=== PATIENT | male | born 1955 | race Caucasian/White ===

== ENCOUNTER 2016-12-10 10:11 | Inpatient (IN) | payer MEDICAID ==
[2016-12-10 10:36] LABS: % IMMATURE GRANULYOCYTES 0.4 % (0.0-1.1); ABSOLUTE IMMATURE GRANULOCYTES 0.03 10^3/uL (0.00-0.10); ADD DIFF? NO; ADD MORPH? NO; ADD SCAN? NO; ATYPICAL LYMPHOCYTE FLAG 20 (0-99); FRAGMENT RBC FLAG 0 (0-99); HEMOGLOBIN 15.6 g/dL (13.7-17.5); LEFT SHIFT FLG 0 (0-99); LIPEMIA HEMOLYSIS FLAG 90 (0-99); MEAN CELL HEMOGLOBIN 32.5 pg (27.9-34.1); MEAN CELL HEMOGLOBIN CONCENTR. 34.7 g/dL (32.4-36.7); MEAN CELL VOLUME 93.8 fL (81.5-99.8); MEAN PLATELET VOLUME 9.7 fL (8.7-11.7); PLATELET CLUMPS FLAG 0 (0-99); PLATELET COUNT 240 10^3/uL (150-400); RED CELL DISTRIBUTION WIDTH 11.8 % (11.5-15.2)
[2016-12-10] MEDS ORDERED: ALTEPLASE 100 MG/100 ML VIAL IV ONE ×2 (10:48→11:16)
[2016-12-10 10:52] LABS: ANION GAP 10 mEq/L (8-16); CALCIUM 9.6 mg/dL (8.5-10.4); CARBON DIOXIDE 23 mEq/l (22-31); CHLORIDE 107 mEq/L (97-110); GLOMERULAR FILTRATION RATE > 60; GLUCOSE 90 mg/dL (70-100); POTASSIUM 4.4 mEq/L (3.5-5.2); SODIUM 140 mEq/L (134-144)
--- NOTE | 2016-12-10 11:02 | CPEKG ---
Heart Rate: 68 RR Interval: 882 P-R Interval: 196 QRSD Interval: 102 QT Interval: 420 QTC Interval: 447 P Henderson: 43 QRS Henderson: 35 T Wave Henderson: 26 EKG Severity - NORMAL ECG - EKG Impression: SINUS RHYTHM Electronically Signed By: Randy Harris 10-Dec-2016 14:31:14
[2016-12-10 11:04] LABS: TROPONIN I < 0.012 ng/mL (0-0.034)
[2016-12-10] MEDS ORDERED: IOPAMIDOL (ISOVUE-300) 100 ML BTL IV ONE (11:12)
[2016-12-10] MEDS ORDERED: NS 50 ML IV ONE (11:16)
[2016-12-10] MEDS ORDERED: ALTEPLASE 1 MG/ML SYR IV ONE (11:16)
--- NOTE | 2016-12-10 11:32 | EDPHY ---
H & P Stated Complaint: CONCERNS OF STROKE-bilateral visual field cut Time Seen by Provider: 12/10/16 10:16 HPI/ROS: CHIEF COMPLAINT: Acute vision loss HISTORY OF PRESENT ILLNESS: The patient presents to emergency department with complaints of acute vision loss in his right superior visual field quadrants noted bilaterally. Symptoms occurred 45 minutes prior to arrival. Patient does have a history of a stroke with a presenting symptom of expressive aphasia in 2016. The patient also has a history paroxysmal atrial fibrillation. The patient is currently on a daily aspirin. He is not anticoagulated. The patient denies any focal peripheral numbness or weakness. The patient denies acute headache. The patient denies recent fall or trauma. The patient denies history of cervical manipulation or neck injury. REVIEW OF SYSTEMS: A comprehensive 10 point review of systems is otherwise negative aside from elements mentioned in the history of present illness. Source: Patient Exam Limitations: No limitations - Personal History Current Tetanus/Diphtheria Vaccine: Yes Current Tetanus Diphtheria and Acellular Pertussis (TDAP): Yes - Medical/Surgical History Hx Asthma: No Hx Chronic Respiratory Disease: No Hx Diabetes: No Hx Cardiac Disease: Yes Hx Renal Disease: No Hx Cirrhosis: No Hx Alcoholism: No Hx HIV/AIDS: No Hx Splenectomy or Spleen Trauma: No Other PMH: DE STENT 02/2016. "mild bipolar", appendectomy; FX RT FX - Social History Smoking Status: Former smoker - Physical Exam Exam: General Appearance: Alert, no distress Eyes: Pupils equal and round no pallor or injection ENT, Mouth: Mucous membranes moist Respiratory: There are no retractions, lungs are clear to auscultation Cardiovascular: Regular rate and rhythm Gastrointestinal: Abdomen is soft and nontender, no masses, bowel sounds normal Neurological: Alert and oriented x4, 5/5 strength noted all 4 extremities, right superior bilateral quadrantopia noted. Skin: Warm and dry, no rashes Musculoskeletal: Neck is supple nontender Extremities: symmetrical, full range of motion Constitutional: Initial Vital Signs Temperature (C) 36.4 C 12/10/16 10:12 Heart Rate 74 12/10/16 10:12 Respiratory Rate 16 12/10/16 10:12 Blood Pressure 132/72 H 12/10/16 10:12 O2 Sat (%) 96 12/10/16 10:12 O2 Delivery Mode Nasal Cannula O2 (L/minute) 2 Allergies/Adverse Reactions: No Known Allergies Allergy (Verified 05/30/16 12:40) Home Medications: Medication Instructions Recorded Acetaminophen [Tylenol 325mg (*)] 650 mg PO Q4 PRN 05/30/16 Aspirin [Aspirin 81mg (*)] 81 mg PO HS 05/30/16 Citalopram Hydrobromide 20 mg PO HS 05/30/16 [Citalopram HBr] Nebivolol HCl [Bystolic 5 mg (*)] 2.5 mg PO DAILY 05/30/16 Ticagrelor [Brilinta] 90 mg PO BID 05/30/16 Zolpidem Tartrate [Ambien 10 mg] 10 mg PO HS PRN 05/30/16 hydrOXYzine HCL [hydrOXYzine HCL 25 mg PO Q6 PRN 05/30/16 (RX)] Calcium Carbonate [Tums 500MG (*)] 500 mg PO TIDMEAL PRN 09/21/16 Amoxicillin/Clavulanate Pot 875 mg PO BID #28 tab 09/24/16 [Augmentin 875 MG TAB (*)] Sulfamethox/Tmp 800/160 mg 1 tab PO BID #28 tab 09/24/16 [Bactrim Ds] oxyCODONE IR [Oxycodone Ir (*)] 5 - 10 mg PO Q4 PRN #10 tab 09/24/16 Medical Decision Making - Diagnostics EKG Interpretation: EKG: Complete interpretation has been separately recorded in the [facility] archive. Summary impression: Sinus rhythm Imaging: Noncontrast head CT scan: Old infarct, stable intracranial calcification, no evidence of acute hemorrhage, no contraindication to tPA per Dr. Goldstein from Radiology. ED Course/Re-evaluation: The patient presents to the ED with an acute bilateral quadrantopia that began 45 minutes prior to arrival. The patient was seen by [facility]. The patient is felt to be a candidate for thrombolytics therapy given his significant visual field loss. The patient has no evidence of an obvious ICH noted on his noncontrast head CT scan. The patient is not anticoagulated. The patient did receive IV tPA. The patient was taken for a stat CT angiogram of his head and neck which demonstrate no evidence of an obvious dissection or thrombus. Results reported to me by Dr. Goldstein. The patient will be admitted to the intensive care unit in the setting of his ischemic stroke requiring thrombolytics therapy. Consultation was made with Dr. Dina Dodd from the hospitalist service. Patient was re-evaluated by myself at 12:20 p.m. the patient reports that his vision loss is improving. He reports confucianism to approximately 20% of his pre tPA deficit Differential Diagnosis: Differential diagnosis considered includes intracranial hemorrhage, stroke, TIA , carotid artery dissection, vertebral artery dissection Critical Care Time: Critical care time exclusive of procedures and exclusive of the PA's time was 42 minutes, performed by myself, Randy Harris MD. The patient presents to emergency department with an acute stroke requiring emergent consultation with tele Neurology and initiation of IV thrombolytic therapy. - Data Points Laboratory Results: Laboratory Results 12/10/16 10:30 12/10/16 10:30 12/10/16 12/10/16 12/10/16 10:30 10:30 10:25 WBC 7.45 10^3/uL 10^3/uL (3.80-9.50) RBC 4.80 10^6/uL 10^6/uL (4.40-6.38) Hgb 15.6 g/dL g/dL (13.7-17.5) POC Hgb 15.0 gm/dL gm/dL (14.5-17.3) Hct 45.0 % % (40.0-51.0) POC Hct 44 % % (42.8-50.6) MCV 93.8 fL fL (81.5-99.8) MCH 32.5 pg pg (27.9-34.1) MCHC 34.7 g/dL g/dL (32.4-36.7) RDW 11.8 % % (11.5-15.2) Plt Count 240 10^3/uL 10^3/uL (150-400) MPV 9.7 fL fL (8.7-11.7) Neut % (Auto) 55.2 % % (39.3-74.2) Lymph % (Auto) 31.1 % % (15.0-45.0) [place] % (Auto) 9.3 % % (4.5-13.0) Eos % (Auto) 2.8 % % (0.6-7.6) Baso % (Auto) 1.2 % % (0.3-1.7) Nucleat RBC Rel Count 0.0 % % (0.0-0.2) Absolute Neuts (auto) 4.11 10^3/uL 10^3/uL (1.70-6.50) Absolute Lymphs (auto) 2.32 10^3/uL 10^3/uL (1.00-3.00) Absolute Monos (auto) 0.69 10^3/uL 10^3/uL (0.30-0.80) Absolute Eos (auto) 0.21 10^3/uL 10^3/uL (0.03-0.40) Absolute Basos (auto) 0.09 10^3/uL 10^3/uL (0.02-0.10) Absolute Nucleated RBC 0.00 10^3/uL 10^3/uL (0-0.01) Immature Gran % 0.4 % % (0.0-1.1) Immature Gran # 0.03 10^3/uL 10^3/uL (0.00-0.10) POC Sodium 141 mEq/L mEq/L (134-144) Sodium 140 mEq/L mEq/L (134-144) POC Potassium 4.2 mEq/L mEq/L (3.3-5.0) Potassium 4.4 mEq/L mEq/L (3.5-5.2) POC Chloride 106 mEq/L mEq/L (96-108) Chloride 107 mEq/L mEq/L (97-110) Carbon Dioxide 23 mEq/l mEq/l (22-31) Anion Gap 10 mEq/L mEq/L (8-16) POC BUN 19 mg/dL mg/dL (7-23) BUN 19 mg/dL mg/dL (7-23) Creatinine 1.0 mg/dL mg/dL (0.7-1.3) POC Creatinine 1.1 mg/dL mg/dL (0.8-1.5) Estimated GFR > 60 Glucose 90 mg/dL mg/dL (70-100) POC Glucose 93 mg/dL mg/dL (70-100) Calcium 9.6 mg/dL mg/dL (8.5-10.4) Troponin I < 0.012 ng/mL ng/mL (0-0.034) Medications Given: Discontinued Medications Alteplase, Recombinant (Activase) 8.217 mg 0.09 mg/kg (8.217 mg) IV ONCE ONE PRN Reason: Protocol Stop: 12/10/16 11:17 Last Admin: 12/10/16 11:02 Dose: 8.217 mg Alteplase, Recombinant (Activase) 73.953 mg 0.81 mg/kg (73.953 mg) IV ONCE ONE PRN Reason: Protocol Stop: 12/10/16 11:17 Last Admin: 12/10/16 11:03 Dose: 73.953 mg Sodium Chloride (Ns) 50 mls @ 0 mls/hr IV EDNOW ONE PRN Reason: Per Protocol Stop: 12/10/16 11:17 Last Admin: 12/10/16 11:49 Dose: 50 mls Point of Care Test Results: 12/10/16 10:25 POC Sodium 141 POC Potassium 4.2 POC Chloride 106 POC BUN 19 POC Creatinine 1.1 POC Glucose 93 Departure - Departure Disposition: [facility] Inpatient Acute Clinical Impression: Acute ischemic stroke Condition: Fair
--- NOTE | 2016-12-10 13:20 | NEUROPROG ---
Assessment: Demographics First Name Ronny Last Tasha Valencia Date of 1955 Age: 61 Gender Male Referring Provider Dr Harris Time of initial page (): 12/10/2016 10:30 Time of return call (): 12/10/2016 10:34 Time Ready to Initiate Telemed Consult (): 12/10/2016 10:34 Consult Type Acute Stroke HPI Chief Complaint: visual disturbance Additional History (Free Text): 61 yo man with acute change in vision while reading this morning. He noted part of the page was missing and realized it was both eyes from the 12 o'clock to the 3 o'clock position on the clock. When looking at others he could not see their left eye unless he turned his head to uses his left sided vision. Time of onset: 12/10/2016 09:30 Time last seen normal (): < 3 hrs Duration constant [facility] Past Medical History: Atrial Fibrillation, coronary artery disease, Cerebrovascular Accident, Diabetes Mellitus, Hyperlipidemia Past Surgical History cardiac stent Social History: non-smoker, occasional alcohol, no drugs, lives with spouse Medications: on antihypertensive, aspirin, on diabetic medication, on lipid lowering agent, brillinta, was on Pradaxa in the past but it made him "psychotic". Allergies: NKDA Exam Vitals: vital signs reviewed Mental Status: awake, alert + oriented x 3, follows commands Language: normal speech, no aphasia, no dysarthria Cranial Nerves extra ocular movements intact, no dysarthria, R partial hemianopia, superior quadrant Motor: normal strength, normal bulk, no drift Sensory: normal sensation Cerebellar: normal cerebellar NIHSS Time (): 12/10/2016 22:41 LOC 1a: 0 = Alert; keenly responsive LOC 1b: 0 = Answers both questions correctly LOC Commands: 0 = Performs both tasks correctly Best Gaze: 0 = Normal Visual: 1 = Partial hemianopia Facial Palsy 0 = Normal symmetrical movements Motor Arm L: 0 = No drift; limb holds 90 (or 45) degrees for full 10 seconds Motor Arm R: 0 = No drift; limb holds 90 (or 45) degrees for full 10 seconds Motor Leg L: 0 = No drift; leg holds 30-degree position for full 5 seconds Motor Leg R: 0 = No drift; leg holds 30-degree position for full 5 seconds Limb Ataxia 0 = Absent Sensory: 0 = Normal; no sensory loss Best Language: 0 = No aphasia; normal Dysarthria: 0 = Normal Extinction + Inattention: 0 = No abnormality NIHSS: 1 Data Assessment: Acute Ischemic Stroke, acute visual loss c/w acute stroke. 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 They understand that there is a potential of life threatening hemorrhagic complication from tPA, but feel that benefits outweigh risks and want to proceed with administration of tPA, BP goal< 180/100 for 24hrs post tPA administration, Use Labetolol 10-20mg IV prn or Nicardipine gtt to maintain BP parameters, No antiplatelets or anticoagulants for next 24 hrs unless indicated for emergent IA procedure or other life threatening situation, ICU admission, Call back if there is any decline in neurological condition Other LDL goal less than 70, telemetry monitoring, I have discussed my recommendations with the referring provider Additional Recommendations: Discussed via telemed camera with patient, Dr. Harris, significant other and sister of patient. Disposition admit - Problem (1) Acute ischemic stroke Objective: Vital Signs Temp Pulse Resp BP Pulse Ox 36.4 C 77 14 96/73 L 94 12/10/16 12:45 12/10/16 12:45 12/10/16 12:45 12/10/16 12:45 12/10/16 12:45 12/09/16 12/10/16 12/11/16 05:59 05:59 05:59 Intake Total 82 Balance 82 Allergies/Adverse Reactions: No Known Allergies Allergy (Verified 05/30/16 12:40)
[2016-12-10] MEDS ORDERED: ACETAMINOPHEN 325 MG TAB PO PRN (13:54)
[2016-12-10] MEDS ORDERED: ONDANSETRON 4 MG/2 ML VIAL IVP PRN (13:54)
[2016-12-10] MEDS ORDERED: oxyCODONE IR 5 MG TAB PO PRN (13:54)
[2016-12-10] MEDS ORDERED: LABETALOL HCL 5 MG/ML 20 ML MDV IVP PRN (13:54)
[2016-12-10] MEDS ORDERED: ONDANSETRON DISINTEGRATING 4 MG TAB PO PRN (13:54)
[2016-12-10] MEDS ORDERED: hydrOXYzine HCL 25 MG TAB PO PRN (14:10)
[2016-12-10] MEDS ORDERED: NON-FORMULARY NEW DRUG (Zolpidem Tartrate [Ambien 10 Mg] 10 MG) PO PRN (14:10)
[2016-12-10] MEDS ORDERED: CALCIUM CARBONATE 500 MG CHEWABLE TAB PO PRN (14:10)
[2016-12-10] MEDS ORDERED: ZOLPIDEM TARTRATE 5 MG TAB PO PRN (14:24)
--- NOTE | 2016-12-10 14:28 | PDGENHP ---
History and Physical - Chief Complaint visual field deficit - History of Present Illness 61 yo male with h/o CAD s/p OK and stent placement in 02/2016 with prior CVA in 2016 presented to ED after developing a visual field deficity this am around 9: 30 while reading a book. His previous stroke presented with expressive aphasia. He also has a history of atrial fibrillation, but is not anti- coagulated. He had an OK in 02/2016 at which time he had a stent placed and has since been on dual anti-platelet therapy with aspirin and plavix. He has not taken these medications yet today. He denies CP, SOB or palpitations. He has a vague left occipital headache, which he feels is "external". In the ED, he received TPA after evaluation by [facility]. He reports 30-50% improvement in his visual field, which is localized to the right upper quandrant b/l. His peripheral vision remains intact and deficit is more central. He is resting comfortably in the ICU at the time of my exam. History Information - Allergies/Home Medication List Allergies/Adverse Reactions: No Known Allergies Allergy (Verified 05/30/16 12:40) Home Medications: Acetaminophen [Tylenol 325mg (*)] 650 mg PO Q4 PRN 05/30/16 [Last Taken 650MG] Aspirin [Aspirin 81mg (*)] 81 mg PO HS 05/30/16 [Last Taken 12/09/16] Citalopram Hydrobromide [Citalopram HBr] 20 mg PO HS 05/30/16 [Last Taken ] Nebivolol HCl [Bystolic 5 mg (*)] 2.5 mg PO DAILY 05/30/16 [Last Taken 12/09/16] Zolpidem Tartrate [Ambien 10 mg] 10 mg PO HS PRN 05/30/16 [Last Taken 12/09/16] hydrOXYzine HCL [hydrOXYzine HCL (RX)] 25 mg PO Q6 PRN 05/30/16 [Last Taken ] Calcium Carbonate [Tums 500MG (*)] 500 mg PO TIDMEAL PRN 09/21/16 [Last Taken ] Clopidogrel Bisulfate [Plavix (*)] 75 mg PO DAILY 12/10/16 [Last Taken 12/09/16] Cyclobenzaprine [Flexeril 10 MG (*)] 10 mg PO TID PRN 12/10/16 [Last Taken 12/07] I have personally reviewed and updated: family history, medical history, social history, surgical history - Past Medical History atrial fibrillation, coronary artery disease, CVA, myocardial infarction - Surgical History Reports: appendectomy - Family History Positive for: cancer Additional family history: father of bone cancer - Social History Smoking Status: Former smoker Tobacco Use: Other (>30 pack yr history, quit 2012) Alcohol Use: Other (1 drink per day) Drug Use: None Additional social history: Lives in [place] with his . 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 Review of Systems ROS: 10pt was reviewed & negative except for what was stated in HPI & below Physical Exam Temp Pulse Resp BP Pulse Ox 36.4 C 68 14 104/70 98 12/10/16 13:15 12/10/16 13:45 12/10/16 13:45 12/10/16 13:45 12/10/16 13:45 O2 (L/minute) 0 Constitutional: no apparent distress Eyes: PERRL Ears, Nose, Mouth, Throat: moist mucous membranes Cardiovascular: regular rate and rhythym, systolic murmur Respiratory: no respiratory distress, clear to auscultation Gastrointestinal: normoactive bowel sounds, soft, non-tender abdomen Skin: warm Musculoskeletal: full muscle strength Neurologic: AAOx3, other (neg pronator drift, no facial asymmetry, +b/l quandrantanopia right upper quandrant of visual dunbar) Psychiatric: interacting appropriately Lab Data & Imaging Review 12/10/16 10:30 12/10/16 10:30 WBC 7.45 10^3/uL (3.80-9.50) 12/10/16 10:30 RBC 4.80 10^6/uL (4.40-6.38) 12/10/16 10:30 Hgb 15.6 g/dL (13.7-17.5) 12/10/16 10:30 POC Hgb 15.0 gm/dL (14.5-17.3) 12/10/16 10:25 Hct 45.0 % (40.0-51.0) 12/10/16 10:30 POC Hct 44 % (42.8-50.6) 12/10/16 10:25 MCV 93.8 fL (81.5-99.8) 12/10/16 10:30 MCH 32.5 pg (27.9-34.1) 12/10/16 10:30 MCHC 34.7 g/dL (32.4-36.7) 12/10/16 10:30 RDW 11.8 % (11.5-15.2) 12/10/16 10:30 Plt Count 240 10^3/uL (150-400) 12/10/16 10:30 MPV 9.7 fL (8.7-11.7) 12/10/16 10:30 Neut % (Auto) 55.2 % (39.3-74.2) 12/10/16 10:30 Lymph % (Auto) 31.1 % (15.0-45.0) 12/10/16 10:30 [place] % (Auto) 9.3 % (4.5-13.0) 12/10/16 10:30 Eos % (Auto) 2.8 % (0.6-7.6) 12/10/16 10:30 Baso % (Auto) 1.2 % (0.3-1.7) 12/10/16 10:30 Nucleat RBC Rel Count 0.0 % (0.0-0.2) 12/10/16 10:30 Absolute Neuts (auto) 4.11 10^3/uL (1.70-6.50) 12/10/16 10:30 Absolute Lymphs (auto) 2.32 10^3/uL (1.00-3.00) 12/10/16 10:30 Absolute Monos (auto) 0.69 10^3/uL (0.30-0.80) 12/10/16 10:30 Absolute Eos (auto) 0.21 10^3/uL (0.03-0.40) 12/10/16 10:30 Absolute Basos (auto) 0.09 10^3/uL (0.02-0.10) 12/10/16 10:30 Absolute Nucleated RBC 0.00 10^3/uL (0-0.01) 12/10/16 10:30 Immature Gran % 0.4 % (0.0-1.1) 12/10/16 10:30 Immature Gran # 0.03 10^3/uL (0.00-0.10) 12/10/16 10:30 POC Sodium 141 mEq/L (134-144) 12/10/16 10:25 Sodium 140 mEq/L (134-144) 12/10/16 10:30 POC Potassium 4.2 mEq/L (3.3-5.0) 12/10/16 10:25 Potassium 4.4 mEq/L (3.5-5.2) 12/10/16 10:30 POC Chloride 106 mEq/L (96-108) 12/10/16 10:25 Chloride 107 mEq/L (97-110) 12/10/16 10:30 Carbon Dioxide 23 mEq/l (22-31) 12/10/16 10:30 Anion Gap 10 mEq/L (8-16) 12/10/16 10:30 POC BUN 19 mg/dL (7-23) 12/10/16 10:25 BUN 19 mg/dL (7-23) 12/10/16 10:30 Creatinine 1.0 mg/dL (0.7-1.3) 12/10/16 10:30 POC Creatinine 1.1 mg/dL (0.8-1.5) 12/10/16 10:25 Estimated GFR > 60 12/10/16 10:30 Glucose 90 mg/dL (70-100) 12/10/16 10:30 POC Glucose 93 mg/dL (70-100) 12/10/16 10:25 Calcium 9.6 mg/dL (8.5-10.4) 12/10/16 10:30 Troponin I < 0.012 ng/mL (0-0.034) 12/10/16 10:30 Imaging Review: CT head, CTA head and neck reviewed. Visualized and Interpreted EKG results: Yes EKG Interpretation: Positive for: normal sinsus rhythm Assessment & Plan Assessment: Acute ischemic stroke (Acute) in 61 yo male with h/o prior CVA - Initial CT neg for hemorrhage. No lg vessel occlusion on CTA head/neck. [facility] consulted in ED and pt given TPA. His symptoms are already improving. Echo ordered. Repeat head CT post-tpa in 24 hrs ordered. Will defer MRI timing to Neurology. Pt has h/o OK and stent in 02/2016, will hold dual-antiplatelet therapy until >24 hrs post-tpa. Permissive hypertension, though he is not acutely hypertensive. Check FLP in am, will add statin now (pt thinks this caused htn in past, but to my knowledge, that is not a known side effect of statin). 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 Paroxsymal Atrial fibrillation - On ASA, bystolic. He is in NSR now, continue telemetry monitoring. Chads-vasc is 3 based on prior CVA and OK. We discussed anti-coagulation, which we'll obviously defer today given TPA use. Will await MRI and discuss timing of anti-coagulation with Neurology and Cardiology. CAD s/p OK with stent placed in 02/2016 - CP free. Personally reviewed EKG, which appears non-ischemic, trop negative. Continue BB, statin added as above. ASA/Plavix held today, will resume 24 hrs post-TPA. Full code Dispo - ICU monitoring post-TPA x24 hrs. Will admit to inpatient as he'll likely require >48 hrs hospitalization for ongoing workup and management of acute CVA
--- NOTE | 2016-12-10 15:31 | ECHO ---
[id number] + + [address] : : [place] [address] : : [phone] + Adult Echocardiographic Report + -------+ :Name: RALPH HARP DStudy Date: 12/10/2016 02:34 PM : : Hospital Admission Number: [id number] Locati on: 252: :: 1955 Gender: Male Height: 73 in : :Age: 61 yrs Race: WH Weight: 201 lb : :Reason For Study: Eval for Embolic source : : BSA: 2.2 meter s2 : :History: New onset CVA, Bilateral visual field disturbance. : :Stent placed 03/04 : + -------+ MMode/2D Measurements \T\ Calculations IVSd: 0.90 cm LVIDd: 4.8 cm FS: 34.0 % Ao root diam: 3.5 cm LVPWd: 1.0 cm LVIDs: 3.2 cm EDV(Teich): 108.4 ml ACS: 1.9 cm ESV(Teich): 40.2 ml EF(Teich): 62.9 % LVOT diam: 2.1 cm LVOT area: 3.5 cm2 Normal Measurement Values: + + :LVIDd (3.5-5.7cm) IVSd (0.6-1.1cm) LVPWd (0.6-1.1cm) Aortic Root (2.0-3.7cm)Left Atrium (1.5-4.0cm): :LV Vol(d) (76-115ml) LV Vol(s) (29-48ml) Ejec Fraction (50-65%)PV Negro (0.6- 1.2m/s) TV Negro (0.4-1.0m/s) : :MV E Negro (0.8-1.0m/s)MV A Negro (0.3-1.0m/s)LVOT Negro (0.7-1.2m/s) Asc Ao Negro ( 0.9-1.8m/s) : + + Doppler Measurements \T\ Calculations MV E max negro: MV V2 mean: Ao V2 max: AI max negro: 40.9 cm/sec 53.6 cm/sec 90.2 cm/sec 415.5 cm/sec MV A max negro: MV mean PG: Ao max PG: AI max P.1 mmHg 50.5 cm/sec 1.3 mmHg 3.3 mmHg AI dec slope: MV E/A: 0.81 MV V2 VTI: Ao mean P.5 cm 1.9 mmHg 207.1 cm/sec2 Ao V2 mean: AI P1/2t: 587.7 msec MVA(VTI): 2.2 cm2 65.1 cm/sec Ao V2 VTI: 18.6 cm ALY(I,D): 2.7 cm2 ALY(V,D): 2.4 cm2 LV V1 max: SV(LVOT): 50.2 ml PA V2 max: 62.1 cm/sec 70.6 cm/sec LV V1 max PG: PA max P.5 mmHg 2.0 mmHg LV V1 mean P.87 mmHg LV V1 mean: 42.5 cm/sec LV V1 VTI: 14.5 cm Left Ventricle The left ventricle is normal in size. There is normal left ventricular wall thickness. The left ventricular ejection fraction is normal. There is Doppler evidence for diastolic dysfunction. Ejection Fraction = 65%. The left ventricular wall motion is normal. Right Ventricle The right ventricle is normal in size and function. Atria The left atrial size is normal. Right atrial size is normal. The injection of contrast documented no interatrial shunt performed in previous echo exam of 05/30/16. Mitral Valve The mitral valve is normal in structure and function. There is no mitral valve stenosis. There is trace mitral regurgitation. Aortic Valve The aortic valve is trileaflet. The aortic valve opens well. There is no aortic stenosis. Moderate aortic regurgitation. Pulmonic Valve The pulmonic valve is normal in structure and function. There is no pulmonic valvular regurgitation. Great Vessels The aortic root is normal size. Pericardium/Pleural There is no pericardial effusion. Conclusion A complete two-dimensional transthoracic echocardiogram was performed (2D, M-mode, Doppler and color flow Doppler). There is normal left ventricular wall thickness. The left ventricular ejection fraction is normal. There is Doppler evidence for diastolic dysfunction. Ejection Fraction = 65%. The left ventricular wall motion is normal. The right ventricle is normal in size and function. The left atrial size is normal. The injection of contrast documented no interatrial shunt performed in previous echo exam of 05/30/16 The mitral valve is normal in structure and function. There is trace mitral regurgitation. The aortic valve is trileaflet. The aortic valve opens well. Moderate aortic regurgitation. The pulmonic valve is normal in structure and function. There is no pericardial effusion. Final Reading Physician: Tiffany Thompson signed on 12/10/2016 03:30 PM Ordering Physician: Dina Dodd Performed By: Patric Archer, BRONSONCS
[2016-12-10] MEDS: ATORVASTATIN CALCIUM 40 MG TAB PO SCH (15:45)
--- NOTE | 2016-12-10 16:34 | GCON ---
[f rep st] CONSULTATION CRITICAL CARE CONSULT. DATE OF CONSULTATION: 12/10/2016 HISTORY OF PRESENT ILLNESS: The patient is a 61-year-old male with a history of coronary disease wh o had an MN in the past with stent placement in February 2016, who also has paroxysmal atrial fibrillatio n. He was reading a book today and had a visual field cut around 9:30, came to the hospital right a way and had a head CT and CT angiogram that were negative for bleeding and underwent tPA administrat ion under the recommendation of [facility]. He said he had near instant improvement in his visual field and is substantially better at this time. In the past, he had a stroke as well that de veloped with expressive aphasia that has taken quite a long time to recover from, though he is alycia l now. REVIEW OF SYSTEMS: He has no chest pain. He had a headache that went away with Tylenol and no shor tness of breath. No palpitations and no recent syncope. PAST MEDICAL HISTORY: Includes coronary artery disease as described above, stroke, myocardial infar ction, and atrial fibrillation. SURGICAL HISTORY: Includes appendectomy. FAMILY HISTORY: Includes a type of bone cancer. SOCIAL HISTORY: He is a former smoker of at least 30-pack years but quit in 2012. Drinks 1 drink a day. No recreational medications. CURRENT MEDICATIONS: Include: 1. Tylenol. 2. Lipitor, which he has requested we hold since that has caused him with difficulty in the past, p articularly with atrial fibrillation. 3. Tums. 4. Celexa. 5. Hydroxyzine p.r.n. 6. Zofran p.r.n. 7. Ambien q.h.s. PHYSICAL EXAM: VITAL SIGNS: He was afebrile, heart rate 85, normal sinus rhythm, blood pressure 11 9/64, respirations 16, oxygen saturation 96% on room air. GENERAL: He is a very pleasant man in no apparent distress and able to speak in full sentences, not using excessive muscles for breathing. HEENT: Pupils are equally round, reactive to light, nonicteric and noninjected. Mucous membranes a re moist without erythema. NECK: Supple without adenopathy or jugular vein distention. LUNGS: Br eath sounds were clear to auscultation bilaterally without wheezes, rubs, or rales. HEART: Regular rate and rhythm without murmurs, rubs, or gallops. ABDOMEN: Soft, nontender, and nondistended wit hout hepatosplenomegaly. EXTREMITIES: No clubbing, cyanosis, or edema. NEUROLOGIC: Nonfocal, inc luding cranial nerves and deep tendon reflexes. LABORATORY \T\ X-RAY DATA: Objective data includes a CT scan as described above. His white count i s 7.4, hematocrit 45, platelets 240. Basic metabolic panel was normal. Troponin was negative. ASSESSMENT/PLAN: 1. Acute likely embolic stroke that caused a visual field defect and has been successfully treated with tPA. We had a discussion about ongoing anticoagulation. His diamond die polisher, Dr. Ramirez, has rec ommended this in the past, and the patient was hesitant to do so but is quite willing to do that now . He apparently has tried Pradaxa in the past and had some difficulty. He has some concerns about Coumadin due to poor proximity of his home near [place] to laboratory testing but has not discusse d Xarelto or Eliquis in the past. He seems to be doing well status post tPA. 2. Hyperlipidemia. Fasting lipid panel is pending for the morning. He is very hesitant to restart a statin, but we will hold that for tonight and revisit that once we have his lab values back. /[id number]/MODL
--- NOTE | 2016-12-10 18:59 | GCON ---
[f rep st] CONSULTATION NEUROLOGY CONSULT DATE OF CONSULTATION: 12/10/2016 REFERRING PHYSICIAN: Dina Dodd MD CHIEF COMPLAINT: Acute stroke. HISTORY OF PRESENT ILLNESS: The patient is a very pleasant 61-year-old gentleman, who had a myocardial infarction in the spring and developed a paroxysmal atrial fibrillation afterwards. Then, in May of 2016 he had acute aphasia symptoms, but did not come to the emergency department till 48 hours later. This occurred as he had an MRI as an outpatient, which showed a subacute left inferior frontal infarct. At that time, it was felt he had a cardioembolic infarct and was recommended anticoagulation. The patient has declined anticoagulation against medical advice from his line closer and now has had a second acute neurovascular event. Today, at 9:40 this morning, he had acute right upper quadrant anopia defect. He was seen in the emergency department at about 1 hour after symptom onset. He was immediately evaluated by Telemedicine and tPA was given. He had complete resolution of his visual field cut. He had no other focal symptoms with this stroke. Specifically, no motor, sensory, speech, or language problems. He has been in ICU and doing well. He had a CTA of the head and neck in the ER, which showed no acute abnormalities or thrombosis. ECG today showed sinus rhythm, previously atrial fibrillation. Echo shows normal left atria size. No shunt was noted. No intracardiac thrombus was noted. REVIEW OF SYSTEMS: Ten-point review of systems was performed and only pertinent to the HPI. For past medical history, family history, social history, home medications, and allergies see Dr. Dodd's H and P. PHYSICAL EXAM: VITAL SIGNS: Blood pressure 106/65, afebrile at 36.5, respiratory rate 16, heart rate 82 regular. HIGHER MENTAL FUNCTION: He is awake and alert, and names 5/5. Follows commands 5/5. Repeats 5/5. No aphasia. CRANIAL NERVES: Normal 2 through 7, 11, and 12. MOTOR EXAM: Normal strength, tone, and deep tendon reflexes throughout. No focal weakness. SENSORY EXAM: Normal to light touch in all 4 extremities. COORDINATION: Normal coordination upper and lower extremities. IMPRESSION AND PLAN: 1. Stroke. 2. Status post tissue plasmogen activator. 3. Paroxysmal atrial fibrillation The patient's symptoms today are consistent with an acute left temporal infarct affecting the optic radiations in that region. He has had complete resolution of his visual field cut with tPA. He is doing well and is on post tPA protocol in the ICU. We will continue the protocol parameters and have a head CT without contrast at 24 hours after tPA was administered. I will order an MRI brain without contrast after the head CT is done to visualize the size of the infarct. This will help us decide when to start anticoagulation. Most importantly, the patient has paroxysmal atrial fibrillation, which is the likely cause of his stroke causing a cardioembolic mechanism. He needs to be on long-term anticoagulation. We will consult Cardiology to discuss this with the patient and decide whether he needs any further cardiac testing now. If the head CT without contrast at 24 hours shows no hemorrhage, he can restart his Plavix and aspirin immediately for his coronary artery disease. We will follow up on all of the above. He has no significant deficits now in regard to therapies. Thank you for this consultation. /[id number]/MODL MTDD
[2016-12-10] MEDS: CITALOPRAM 20 MG TAB PO SCH (21:08)
[2016-12-11 03:43] LABS: CHOLESTEROL 201 mg/dL (140-220); CHOLESTEROL/HDL RATIO 4.28 RATIO (1.00-4.97); HIGH DENSITY LIPOPROTEIN 47 mg/dL (40-65); LDL/HDL RATIO 2.62 RATIO (1.00-3.64); LOW DENSITY LIPOPROTEIN 123 mg/dL (80-100); NON-HIGH DENSITY LIPOPROTEIN 154 mg/dL (90-129); TRIGLYCERIDE 157 mg/dL (40-150); VERY LOW DENSITY LIPOPROTEINS 31 mg/dL (8-25)
[2016-12-11] MEDS: ATORVASTATIN CALCIUM 40 MG TAB PO SCH (08:29)
--- NOTE | 2016-12-11 09:16 | HOSPPROG ---
Hospitalist Progress Note Assessment/Plan: Embolic CVA - Complete resolution of symptoms. Suspect related to A fib, though no A fib here. Post-TPA yesterday. Repeat CT at noon, MRI later today per neuro. Start ASA tonight if CT neg. Discussed statin with pt, he feels it makes him angry/stressed after a few days. He agrees to continuing at lower dose and can uptitrate as tolerated. LDL 130's. A fib - NSR here. Will need to start anti-coagulation, will await MRI results and discuss timing of Coumadin with Neurology. CAD - s/p stent 02/2016. ASA and Plavix held for >24 hrs post-TPA, will resume tonight if CT neg and if neurology agrees. Resume Bystolic with hold parameters. Lower dose of statin as pt has not tolerated well in the past. Full code Dispo - cont inpt, may transfer to floor later today Subjective: Pt feels well. He reports complete resolution of his visual field deficit. No strange or vision changes. No CP or SOB. Objective: Vital Signs Temp Pulse Resp BP Pulse Ox 36.4 C 84 17 97/67 L 97 12/11/16 07:15 12/11/16 08:15 12/11/16 08:15 12/11/16 08:15 12/11/16 08:15 12/10/16 12/11/16 12/12/16 05:59 05:59 05:59 Intake Total 1882 Output Total 700 Balance 1182 - Physical Exam Constitutional: no apparent distress Eyes: PERRL, other (normal visual dunbar) Ears, Nose, Mouth, Throat: moist mucous membranes Cardiovascular: regular rate and rhythym Respiratory: no respiratory distress Gastrointestinal: normoactive bowel sounds, soft, non-tender abdomen Skin: warm Musculoskeletal: full muscle strength Neurologic: AAOx3, CN II-XII Intact Psychiatric: interacting appropriately ICD10 Worksheet Patient Problems: Problems Problem Status Onset Acute ischemic stroke Acute Expressive aphasia Acute Fine motor impairment Acute Scrotal wall abscess Acute
--- NOTE | 2016-12-11 12:53 | PDINTPN ---
Front Office Associate Progress Note Assessment/Plan: Assessment/plan: 61 M with hx remote AZ/stent and paroxysmal afib with remote CVA admitted with new right visual field cut. He came to the ED immediately, had a negative head CT and was administered TPA with substantial and near immediate resolution of symptoms. 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 No cp, palpitations, f/c/s Objective: Vital Signs Temp Pulse Resp BP Pulse Ox 36.4 C 77 17 93/61 L 96 12/11/16 07:15 12/11/16 10:13 12/11/16 10:00 12/11/16 10:13 12/11/16 10:13 12/10/16 12/11/16 12/12/16 05:59 05:59 05:59 Intake Total 1882 Output Total 700 300 Balance 1182 -300 ICD10 Worksheet Patient Problems: Problems Problem Status Onset Acute ischemic stroke Acute Expressive aphasia Acute Fine motor impairment Acute Scrotal wall abscess Acute
--- NOTE | 2016-12-11 16:28 | GCON ---
CARDIOLOGY CONSULTATION PRIMARY SILK SCREEN OPERATOR: Dr. Ramirez. PRIMARY NEUROLOGIST: Dr. Ghulam Snyder. We are asked by Dr. Dina Dodd to evaluate the patient for his atrial fibrillation and acute stroke status post tPA done 12/10/2016. HISTORY OF PRESENT ILLNESS: The patient is a 61-year-old male with known coronary artery disease, status post PA and PCI to the left circumflex in February of 2016, previous stroke in 2016 with expressive aphasia at that time, dyslipidemia intolerant to statins who presented with visual field deficits that started yesterday. He also has a history of paroxysmal atrial fibrillation but has been reluctant to start full anticoagulation. He was given tPA with resolution of his visual field deficits fairly quickly. He denies any current word finding difficulty, slurred speech or expressive aphasia. From a cardiovascular perspective, he feels he has been stable. He has not noted any chest pains, dyspnea, palpitations, presyncope, syncope. HOME MEDICATIONS: Include Tylenol, aspirin, citalopram, Bystolic, Ambien, hydroxyzine, calcium, clopidogrel and Flexeril. ALLERGIES: No known drug allergies. SOCIAL HISTORY: Patient is . 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 He reported 1 alcoholic beverage per day. PAST MEDICAL HISTORY: 1. Paroxysmal atrial fibrillation. 2. Coronary artery disease with previous PCI to circumflex and moderate LAD disease with no ischemia on recent nuclear in February of 2016. 3. CVA. 4. History of PA. PAST SURGICAL HISTORY: Appendectomy. REVIEW OF SYSTEMS: As per HPI. A complete 10-point review of systems was obtained and is negative except for what is dictated. PHYSICAL EXAMINATION: VITAL SIGNS: BP 107/85, heart rate of 86, respirations 15, O2 saturation 96% on room air, temp of 98.1 degrees Fahrenheit. GENERAL: He is a pleasant male in no apparent distress. EYES: RAFAEL without scleral icterus. Mucous membranes moist. NECK: Without JVD or carotid bruits. HEART : Regular rate and rhythm with no rubs, gallops or murmurs. LUNGS: Clear to auscultation bilaterally. ABDOMEN: Soft, nontender, nondistended. SKIN: Warm and dry. NEURO: No focal deficits detected. PSYCH: Normal mood and affect. LABORATORY DATA: CBC with WBC 7.45, hemoglobin 15.6, hematocrit 45, platelet count 240. BMP with sodium 140, potassium 4.4, chloride 107, CO2 23, BUN 19, creatinine 1, glucose of 90. Triglycerides 157, total cholesterol 201, LDL cholesterol 123, HDL cholesterol of 47. A 12/10/2016 echo demonstrates EF of 65 %, trace MR, moderate aortic regurgitation. Head and neck CTA shows mild atherosclerosis of the left carotid bulb of 10%. 12/10 twelve-lead ECG reveals sinus rhythm with a left atrial abnormality. This is personally interpreted. Telemetry reveals a sinus rhythm. IMPRESSION AND PLAN: 1. The patient is a 61-year-old male who presents with acute ischemic stroke. He has been given tPA with resolution of his visual field deficits. Repeat head CT without hemorrhagic conversion. This will be monitored by Neurology. 2. Paroxysmal atrial fibrillation. He has CHADS-VASc of now 4. He is strongly encouraged to consider anticoagulation. He actually has discussed with his fruit packer, Dr. Ramirez, and he is agreeable to initiate Coumadin therapy. This will be initiated when cleared from Neurology, which is likely in the next 2 weeks. We will plan to enroll him in Coumadin clinic and have close clinical follow up with Dr. Ramirez. 3. Coronary artery disease. He is status post myocardial infarction and PCI in 2016 with moderate residual LAD disease. He has no symptoms suggestive of angina. Given his CVA and coronary artery disease, he has agreed to the initiation of atorvastatin. In the past, he has felt that he has sensitivities to statins. He will continue this therapy and plan for outpatient labs prior to his next appointment with Dr. Ramirez. /[id number]/MODL MTDD
--- NOTE | 2016-12-11 19:44 | NEUROPROG ---
Assessment: 1. Stroke 2. Status post tPA 3. Atrial fibrillation the MRI brain shows 2 areas of acute stroke: left occipital and right temporal. The left occipital stroke is very small and likely causative visual field deficit and responded to tPA. The right temporal infarct is likely asymptomatic. The head CT without contrast showed no hemorrhage. He can restart Plavix and aspirin today. Based on the small size of the strokes, he can start oral anticoagulation 7 days from the stroke which will be next Friday. Discussed at length with the patient. He has seen Cardiology, appreciate their input. We will discuss disposition and discharged tomorrow with outpatient planning. Subjective: No new symptoms Objective: Vital Signs Temp Pulse Resp BP Pulse Ox 36.4 C 76 15 110/77 96 12/11/16 16:00 12/11/16 16:00 12/11/16 16:00 12/11/16 16:00 12/11/16 16:00 12/10/16 12/11/16 12/12/16 05:59 05:59 05:59 Intake Total 1882 1100 Output Total 700 300 Balance 1182 800 patient is awake an d alert no visual field cut no focal weakness Allergies/Adverse Reactions: No Known Allergies Allergy (Verified 05/30/16 12:40)
[2016-12-11] MEDS: CITALOPRAM 20 MG TAB PO SCH (20:35)
[2016-12-11 20:37] VITALS: TEMP 97.7; O2SAT 95
[2016-12-11] MEDS ORDERED: CLOPIDOGREL BISULFATE 75 MG TAB PO SCH ×2 (21:00)
[2016-12-11] MEDS ORDERED: ASPIRIN 81 MG CHEWABLE TAB PO SCH (21:00)
[2016-12-11] MEDS ORDERED: ASPIRIN 325 MG TAB PO SCH (21:00)
[2016-12-12 07:46] VITALS: BP 111/75; PULSE 85; RESP 14
[2016-12-12] MEDS ORDERED: ATORVASTATIN CALCIUM 40 MG TAB PO SCH (09:00)
[2016-12-12] MEDS ORDERED: NEBIVOLOL HCL 5 MG TAB PO SCH (09:00)
--- NOTE | 2016-12-12 14:37 | GDS ---
DISCHARGE DIAGNOSES: 1. Acute ischemic stroke, probably embolic. 2. Paroxysmal atrial fibrillation. 3. History of coronary artery disease. HISTORY: This is a 61-year-old male who presented as a stroke alert with expressive aphasia and vis ual field defects. HOSPITAL COURSE: The patient was admitted as a stroke alert. He was given tPA. His symptoms actua lly have completely resolved. He does have a history of paroxysmal atrial fibrillation and has resi sted be on anticoagulation in the past. However, he is amenable to this, and it should be started i n 7 days post stroke. He has also been intolerant of statins. We will start low-dose Lipitor to se e if he might tolerate that. He will be discharged home today, and all medications will be the same except for the addition of Lipitor. /[id number]/MODL
== END 2016-12-12 10:15 | disposition home or self-care (01) | DRG 63 ==
LOC: F2N 13:04
PROVIDERS: ADMIT Hospitalist; ATTEND Internal Medicine
DX: I63.9 Cerebral infarction, unspecified (principal); H53.469 Homonymous bilateral field defects, unspecified side; R47.01 Aphasia; I48.0 Paroxysmal atrial fibrillation; I25.10 Atherosclerotic heart disease of native coronary artery without angina pectoris; E78.5 Hyperlipidemia, unspecified; I25.2 Old myocardial infarction; Z95.5 Presence of coronary angioplasty implant and graft
CPT/HCPCS: 82947-QW; 92523-GN; 96365; 97165-GO; J2997; Q9967